=== PATIENT | female | born 1950 | race Caucasian/White ===

== ENCOUNTER → 2016-10-14 | Outpatient (CLI) | payer MEDICARE, OTHER ==
[~2016-10-14] MED LIST: ATEN-51 PO; BENA20TA48 PO; CLON-379 PO; GEMF600T60 PO; GLYB1TAB2 PO; OMEP20CA16 PO; SIMV20TA2 PO
--- NOTE | 2016-10-14 16:14 | RADRPT ---
PROCEDURE: XR Left Hip and pelvis. CLINICAL INDICATION: Left hip pain. Pelvic pain. TECHNIQUE: Two views. Frontal pelvis and lateral left hip. COMPARISON: 09/17/2014. FINDINGS: There are bilateral total hip arthroplasties. These appears satisfactory with no fracture, dislocat ion, or loosening. The soft tissues are normal. There is no lytic or blastic lesion. The upper pelvis is not included on the images. IMPRESSION: 1. Satisfactory postoperative appearance of both hips. RPTAT: QQ .Senthil Strange MD, MD Date Time Electronically viewed and signed by .Senthil Strange MD, MD on 10/14/2016 16:13 .R/
--- NOTE | 2016-10-22 14:18 | HKNOTE ---
DATE OF SERVICE: 10/15/2016 MAIN COMPLAINT: Pain in the left knee and left hip. HISTORY OF MAIN COMPLAINT: The patient is a 66-year-old female who underwent a left hip replacement by me in 2007 and a right hip replacement in 2013. She was doing very well and was getting around without much pain until 10 days ago when she almost fell, but twisted her knee and was able to catch herself. After that she had pain in the left hip and left knee. The patient saw her primary care doctor, Dr. Swift who obtained x-rays of her left knee. She was told that the radiologist reported the findings as "normal". CURRENT COMPLAINTS: Her pain is described as moderate. It is aggravated by walking, weight bearing, and stair climbing. She does not get rest pain or night pain. She does not have any problems with her lower back and never has. On a level surface she can walk perhaps a quarter of block at present. She is not using a walking aid, but she is limping all the time. She does not have shoe lift. The knee currently is not swelling. It is not unstable, but it is "caught a few times" (? Locking). PAST ORTHOPEDIC HISTORY: As noted above. PRIOR CORTISONE INTAKE: None. ALCOHOL INTAKE: None. OTHER JOINT PROBLEMS: None. HISTORY OF ARTHRITIS: None. INJURIES TO HIPS OR KNEES: None. WORK STATUS: Unemployed. PAST MEDICAL HISTORY: 1. Hypertension. 2. Diabetes. PAST SURGICAL HISTORY: Bilateral hip replacements by Dr. Segundo. DRUG ALLERGIES: None. MEDICATIONS: Benazepril for hypertension. Atenolol for hypertension. Metformin for diabetes. FAMILY HISTORY: Noncontributory, except that the mother had diabetes. REVIEW OF SYSTEMS: Hypertension and diabetes, otherwise negative. Habits Does not smoke or drink alcoholic beverages. PHYSICAL EXAMINATION: GENERAL: The patient is a rather fragile looking 66-year-old female. She comes in with her daughter. The daughter does most of the talking. VITAL SIGNS: Height 5 feet, weight 188 pounds, blood pressure 154/70, and temperature 98.3. MUSCULOSKELETAL: The patient's gait is very slow and deliberate. She is able to get onto the examination couch. [____] normal. BACK: Has a full range of motion without pain. NEUROLOGIC: Straight leg raising is negative bilaterally to 80 degrees. DIRECTED HIP EXAMINATION: Both hips have full range of motion without pain. KNEE EXAMINATION: Left knee extension is full. Lacks 25 degrees and has more pain. Two plus effusion. Marked tenderness over the medial joint line. DISCUSSION: A 66-year-old female who twisted her left knee 2 weeks ago. This is a classic type of injury that can cause a torn meniscus. Flexion lacks 25 degrees with marked pain over the medial joint line. There is an effusion in the knee. IMAGING: Plain x-rays of the pelvis and hips obtained today were reviewed. No abnormalities were found. DIAGNOSIS: Possible internal derangement of the left knee. MANAGEMENT: The patient has been referred for a MRI scan of the left knee and she will be seen again thereafter for reevaluation. Note that she has Tylenol and ibuprofen at home for pain. Dictated By: Evangelist Segundo MD /davis/alexandrea /Document#: [id number]
== END | disposition home or self-care (01) ==
LOC: HKI 15:09
DX: M25.562 Pain in left knee (principal); M25.561 Pain in right knee; Z96.653 Presence of artificial knee joint, bilateral; I10 Essential (primary) hypertension; E11.9 Type 2 diabetes mellitus without complications; Z79.84 Long term (current) use of oral hypoglycemic drugs; M25.462 Effusion, left knee
CPT/HCPCS: 73502; G0463